=== PATIENT | male | born 1980 | race Caucasian/White ===

== ENCOUNTER → 2021-04-30 | Outpatient (CLI) | payer OTHER ==
--- NOTE | 2021-04-30 12:49 | RAD ---
EXAMINATION: MRI LEFT UPPER EXTREMITY JOINT WITHOUT CONTRAST INDICATIONS: Ruptured biceps tendon TECHNIQUE: Multiplanar multisequence MRI of the left elbow was obtained without contrast. COMPARISON: None. FINDINGS: BONES AND CARTILAGE: No acute fracture or marrow edema. Mild cystic changes in the capitellum. Articu lar cartilage is grossly intact. LIGAMENTS: The ulnar collateral ligament is intact. The lateral ulnar collateral ligament and radial collateral ligaments are intact. Annular ligament is intact. TENDONS: There is complete rupture of the biceps tendon with retraction of the tendon approximately 1 2 cm, above the antecubital fossa. There is mild fluid in the antecubital fossa along the course of t he torn tendon. Triceps and brachialis tendons are intact. Common flexor and common extensor tendon o rigins are intact. OTHER: Muscles are intact. Mild subcutaneous change edema along the biceps tendon and musculature. Ne urovascular structures are unremarkable. No joint effusion. IMPRESSION: Complete rupture of the distal biceps tendon with retraction approximately 12 cm, above t he antecubital fossa. Electronically signed by: Marlene Carson MD (04/30/2021 12:47 PM) [id number]
== END ==
LOC: MRI 08:14
PROVIDERS: ATTEND Orthopaedic Surgery
DX: S46.212A Strain of muscle, fascia and tendon of other parts of biceps, left arm, initial encounter (principal); R60.0 Localized edema; X58.XXXA Exposure to other specified factors, initial encounter; Y93.89 Activity, other specified; Y92.89 Other specified places as the place of occurrence of the external cause; Y99.8 Other external cause status
CPT/HCPCS: 73221

== ENCOUNTER → 2021-05-08 | Outpatient (CLI) | payer OTHER ==
[~2021-05-08] MED LIST: OXYC-325 PO
== END ==
LOC: LAB 10:23
PROVIDERS: ATTEND Orthopaedic Surgery Sports Medicine
DX: Z01.812 Encounter for preprocedural laboratory examination (principal); Z20.822 Contact with and (suspected) exposure to COVID-19
CPT/HCPCS: U0003

== ENCOUNTER 2021-05-12 09:13 | Day surgery (SDC) | payer OTHER ==
[~2021-05-12] VITALS: Ht 190.5 cm; Wt 115.9 kg
[~2021-05-12 09:13] MED LIST changes: +DEXAMETHASONE SOD PHOS 4 MG/ML VIAL ONE; +FAMOTIDINE 20 MG/2 ML VIAL ONE; +HYDROmorphone 2 MG/ML INJ. IVP PRN; +IV RINGERS,LACTATED 1000ML 1,000 ML IV SCH; +LIDOCAINE 2% PF 5 ML VIAL. ONE; +MIDAZOLAM HCL/PF 2 MG/2 ML VIAL. ONE; +MORPHINE SULFATE 2 MG/ML INJ. IVP PRN; +ONDANSETRON PF 4 MG/2 ML VIAL. ONE; -OXYC-325 PO; +PROCHLORPERAZINE 10 MG/2 ML VIAL. IVP PRN; +PROPOFOL 10 MG/ML (20ML) VIAL. IV ONE; +fentaNYL PF VIAL 100 MCG/2 ML VIAL IVP PRN; +fentaNYL PF VIAL 100 MCG/2 ML VIAL ONE
[2021-05-12] MEDS ORDERED: BUPIVACAINE MPF 0.5% 30 ML VIAL. ONE (10:15)
[2021-05-12] MEDS ORDERED: LIDOCAINE 1% Multi-Dose 20 ML VIAL. ONE (10:15)
[2021-05-12] MEDS ORDERED: OXYC-325 PO (11:47)
--- NOTE | 2021-05-12 11:48 | DISCH ---
DISCHARGE INSTRUCTIONS Condition on Discharge Condition on Discharge: Stable Activity After Discharge Activity Instructions for Disc: Other, see below Bathing Instructions: Shower-keep dressing dry Weight Bearing Status after Di: Non weight bearing Diet after Discharge Diet after Discharge: Regular Wound Incision Care Wound/Incision Care: Ice to area for comfort, Keep wound/cast CDI, Do not change dressing Contacting the after DC Call your doctor for: Concerns you may have Follow-Up Follow up with: Bentley in 2wks MAC VALDES II, MD May 12, 2021 11:48
--- NOTE | 2021-05-12 11:50 | PDOC4 ---
Operative Note Operative Note Date of procedure: 05/12/2021 Surgeon: Rolly Valdes Intake Assessor: Hayes Louis, certified nurse midwife Preoperative gnosis: Left distal biceps rupture Postop diagnosis: Same Procedure performed: Open left distal biceps repair Anesthesia: General Findings: Retracted biceps rupture Complications: None Tourniquet time: 67 Components inserted: [employer] Endobutton, posterior tibialis allograft Blood loss: 25 mL Reason for procedure: Patient is a pleasant 41-year-old gentleman who noted the acute onset of pain and deformity over his left elbow about 6 weeks ago. Please see my outpatient notes for further details. Clinical and radiographic examination were consistent with the above preoperative diagnosis and had a discussion of the risk benefits and alternatives to surgery with him and he wished to proceed. Description of procedure: Patient was greeted in the preoperative area by myself or the correct extremity was verified and marked. Is taken to the operative suite and antibiotics were started as he was brought back. Once in the operating room he underwent successful induction of a general anesthetic after he was transferred gently supine to the operating room table. Arm board was attached to the operating room table. All down pressure points were padded. We proceeded to prep and drape left upper extremity in our usual sterile fashion and conducted a standard preoperative timeout. A sterile tourniquet was used at his left upper arm. Extremity was exsanguinated with an Esmarch and tourniquet insufflated to 250 mmHg. I then began the procedure by making a transverse line on his skin about 4 cm distal to his antecubital fossa. I incised skin with a scalpel and dissected subcutaneous tissue with tenotomy's. I incised fascia in line with the skin incision. Identified his brachioradialis and worked at the ulnar aspect of this and identified the posterior interosseous nerve and a large venous branch and protected these. I continued dissecting down until identified the radial tuberosity, I did use vascular clips at a couple spots for transversely oriented veins. Identified the radial tuberosity and the footprint. I had a Hohmann retractor over the radial aspect of the proximal radius. My finger was protecting the neurovascular tear on the medial aspect. Once I had this exposure done I bluntly dissected up towards the's tendon stump that I could palpate. This distance was way too far for me to reach and therefore I made a accessory transverse incision over the tendon stump and dissected down and incised fascia in line with the skin incision and delivered the tendon stump from this field. I freshen up the edges and debrided it carefully. With maximal traction and trying to free it up as much as I could I was still about 8 to 10 cm short. This was with the arm at about 45 of flexion as well. Therefore, I oversewed a posterior tibialis with ultra braid suture to secure it to the biceps tendon and shuttled this through my subcutaneous tunnel using a hemostat to demetra my anticipated length with the arm at about 45 of flexion. I cut the tendon at this demetra added whipstitch and secured it to an Endobutton. After this I directed my attention back to the proximal radius and advanced my Beath pin followed by my Endobutton reamer and acorn reamer, I had previously sized my tendon. After this I shuttled the traction sutures of the Endobutton using the Beath pin and was able to dock the tendon at about 45 degrees confirmed by good tension on the biceps tendon and appropriate toggle of the Endobutton on the far cortex. We had thoroughly irrigated as we drilled that multiple times as well to remove any loose bony debris. I irrigated everything out again and let tourniquet down. There was some oozing at the bone tunnel, very little. Otherwise the operative field was fairly dry. Inverted interrupted 2-0 Vicryl for subcutaneous tissue at both incisions was used. Running 3-0 Monocryl in a buried subcuticular fashion of both incisions was then used. At this point the arm was cleansed and dried and a soft bulky posterior splint was applied with the arm at about 45 degrees of flexion at the elbow. Prior to wound closure all counts correct x2. No complications. Patient tolerated surgery well. At the inclusion he was awake from anesthesia and transferred gently supine to the recovery room cart and taken to PACU in a stable and extubated condition. Postoperative plan is to discharge him home. Nonweightbearing. I will see him back in 2 weeks, sooner should a problem arise ROLLY VALDES II, MD May 12, 2021 11:50
[2021-05-12] MEDS ORDERED: PROPOFOL 10 MG/ML (20ML) VIAL. IV ONE (11:56)
[2021-05-12] MEDS ORDERED: HYDROmorphone 2 MG/ML INJ. ONE (12:42)
[2021-05-12] MEDS ORDERED: SEVOFLURANE 61 TO 120 MINUTES. IH ONE (13:37)
[2021-05-12] MEDS ORDERED: oxyCODONE/APAP 5/325 1 TAB TABLET PO ONE (14:00)
[2021-05-12 14:29] VITALS: BP 137/81
== END 2021-05-12 15:10 | disposition home or self-care (01) ==
LOC: SURG 09:13 → EDSTATUS 12:15 → SURG 15:10
PROVIDERS: ATTEND Orthopaedic Surgery Sports Medicine
DX: S46.212A Strain of muscle, fascia and tendon of other parts of biceps, left arm, initial encounter (principal); Z72.89 Other problems related to lifestyle; Z79.899 Other long term (current) drug therapy; Z98.890 Other specified postprocedural states; X58.XXXA Exposure to other specified factors, initial encounter; Y93.89 Activity, other specified; Y92.89 Other specified places as the place of occurrence of the external cause; Y99.8 Other external cause status
CPT/HCPCS: 24342; A4364; A4565; A4930; A6402; A6449; A6450; C1713; C1762; J0690; J1100; J1170; J2250; J2405; J2704; J3010; J3490; A4223; A4452